=== PATIENT | female | born 1995 | race Two or more races ===

== ENCOUNTER 2016-07-18 08:14 | Day surgery (SDC) | payer OTHER ==
[~2016-07-18 08:14] MED LIST: LACTATED RINGERS 1,000 ML IV SCH
[2016-07-18] MEDS ORDERED: IV START KIT ONE (09:04)
[2016-07-18] MEDS ORDERED: LACTATED RINGERS 1,000 ML ONE (09:04)
[2016-07-18] MEDS ORDERED: PROPOFOL 20 ML IV ONE (09:54)
[2016-07-18 14:19] LABS: HELICOBACTER PYLORII DETECTION NEGATIVE (NEGATIVE)
== END 2016-07-18 10:57 | disposition home or self-care (01) ==
LOC: SDC 08:14
PROVIDERS: ATTEND Internal Medicine Gastroenterology
PROC: 0DB68ZX Excision of Stomach, Via Natural or Artificial Opening Endoscopic, Diagnostic (ICD-10-PCS; principal; 2016-07-18)
PROC: 0DB98ZX Excision of Duodenum, Via Natural or Artificial Opening Endoscopic, Diagnostic (ICD-10-PCS; 2016-07-18)
DX: K29.70 Gastritis, unspecified, without bleeding (principal); K29.80 Duodenitis without bleeding; R63.4 Abnormal weight loss
CPT/HCPCS: 87081; 43239; J7120